=== PATIENT | female | born 1950 | race Caucasian/White ===

== ENCOUNTER 2017-07-10 12:53 | Emergency (ER) | payer MEDICAID, OTHER ==
[~2017-07-10] VITALS: Ht 160 cm; Wt 85.0 kg
[2017-07-10 12:58] VITALS: BP 155/80; PULSE 73; RESP 14; TEMP 98.4; O2SAT 97
[2017-07-10] MEDS ORDERED: SERT-129 PO (13:24)
[2017-07-10] MEDS ORDERED: MULT1CHW33 (13:24)
[2017-07-10] MEDS ORDERED: CLON0.5T PO (13:24)
[2017-07-10] MEDS ORDERED: BACL20TA PO (13:24)
[2017-07-10] MEDS ORDERED: ASPI-516 CHEW (13:24)
[2017-07-10] MEDS ORDERED: RANI150T PO (13:24)
[2017-07-10] MEDS ORDERED: VYTO10TA8 PO (13:24)
[2017-07-10] MEDS ORDERED: AZEL1SPR2 EACH NARE (13:24)
[2017-07-10] MEDS ORDERED: LOSA25TA PO (13:24)
[2017-07-10] MEDS ORDERED: MELA5 PO (13:24)
[2017-07-10] MEDS ORDERED: OXYB5TAB8 PO (13:24)
[2017-07-10 13:57] LABS: BILIRUBIN, URINE NEG (NEG); BLOOD, URINE NEG (NEG); GLUCOSE,URINE NEG (NEG); KETONE, URINE NEG (NEG); NITRITE,URINE NEG (NEG); SQUAMOUS EPITHELIAL CELL URINE 1 /hpf (0-5); URINE COLOR LIGHT-YELLOW (YELLW/STRAW); URINE LEUKOCYTE ESTERASE TRACE (NEG)
--- NOTE | 2017-07-10 14:18 | PD ---
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 Patient states she has been referred to a neurologist but that appointment is 2 weeks away and she did not think she can wait that long because she is running to the bathroom all the time. States she has had urinary tract infections in the past. States only minimal discomfort in the suprapubic area. No chest pain or shortness of breath no new weakness. Patient is symptoms are moderate, for the past week, context as above, associated signs symptoms as above PFSH Past Medical History Hx Anticoagulant Therapy: No Depression: Yes Cardiovascular Problems: No Chemotherapy: No Cerebrovascular Accident: No Diabetes: No GERD: Yes Hypertension: Yes Respiratory: No ?: Not Past Surgical History Hysterectomy: Yes (93) Social History Alcohol Use: No Tobacco Use: No (quit 15 years ago ) Substance Use: No Allergies-Medications (Allergen,Severity, Reaction): Coded Allergies: penicillin G (Unverified Allergy, Severe, 07/10/17) CONFIRM? Uncoded Allergies: PENICILLIN (Allergy, Unknown, 01/23/03) Reported Meds & Prescriptions Reported Meds & Active Scripts Active Reported Azelastine Nasal [place] (Azelastine HCl) 0.1% [place] 1 [place] EACH NARE BID Clonazepam 0.5 Mg Tab 0.5 Mg PO TID PRN Melatonin 5 Mg Tab 5 Mg PO HS Aspirin 81 Mg Chew 81 Mg CHEW DAILY Ranitidine (Ranitidine HCl) 150 Mg Tab 150 Mg PO BID Losartan (Losartan Potassium) 25 Mg Tab 25 Mg PO DAILY Sertraline (Sertraline HCl) 100 Mg Tab 150 Mg PO DAILY Ditropan (Oxybutynin Chloride) 5 Mg Tab 5 Mg PO DAILY Vytorin (Ezetimibe-Simvastatin) 10-20 Mg Tab 1 Tab PO HS Baclofen 20 Mg Tab 20 Mg PO QID Multi Adult Gummies (Multiple Vitamins W/ Minerals) 200 Mcg Chw Review of Systems Except as stated in HPI: all other systems reviewed are Neg Physical Exam Narrative GENERAL: Well-developed well-nourished, no obvious distress per SKIN: Focused skin assessment warm/dry. HEAD: Atraumatic. Normocephalic. EYES: Pupils equal and round. No scleral icterus. No injection or drainage. ENT: No nasal bleeding or discharge. Mucous membranes pink and moist. NECK: Trachea midline. No JVD. CARDIOVASCULAR: Regular rate and rhythm. No murmur appreciated. RESPIRATORY: No accessory muscle use. Clear to auscultation. Breath sounds equal bilaterally. GASTROINTESTINAL: Abdomen soft, non-tender, nondistended. Hepatic and splenic margins not palpable. MUSCULOSKELETAL: No obvious deformities. No clubbing. No cyanosis. No edema. NEUROLOGICAL: Awake and alert. Cranial nerves II through XII grossly intact and nonfocal, 5 out of 5 strength in all 4 extremities, she does have some slow very deliberate movements and some slow and very deliberate speech as well. All of which she says this is chronic for her PSYCHIATRIC: Appropriate mood and affect; insight and judgment normal. Data Data Last Documented VS Vital Signs Date Time Temp Pulse Resp B/P (MAP) Pulse Ox O2 Delivery O2 Flow Rate FiO2 07/10/17 15:35 07/10/17 12:58 98.4 73 14 97 Room Air Orders Orders Urinalysis - C+S If Indicated (07/10/17 13:16) Ed Poc Ultrasound (07/10/17 ) Ed Discharge Order (07/10/17 15:23) Labs Laboratory Tests Test 07/10/17 13:25 Urine Color LIGHT-YELLOW Urine Turbidity CLEAR Urine pH 6.0 Urine Specific [place] 1.003 Urine Protein NEG mg/dL Urine Glucose (UA) NEG mg/dL Urine Ketones NEG mg/dL Urine Occult Blood NEG Urine Nitrite NEG Urine Bilirubin NEG Urine Urobilinogen LESS THAN 2.0 MG/DL Urine Leukocyte Esterase TRACE Urine RBC LESS THAN 1 /hpf Urine WBC 2 /hpf Urine Squamous Epithelial Cells 1 /hpf Microscopic Urinalysis Comment CULT NOT INDICATED MDM Medical Decision Making Medical Screen Exam Complete: Yes Emergency Medical Condition: Yes Differential Diagnosis Urinary retention, acute kidney injury unlikely, neurogenic bladder Narrative Course Patient room to the emergency department, symptoms are likely consistent with neurogenic bladder versus UTI, urinalysis was negative, she is stable for discharge and discussed need follow-up with neurology as well as urologist. Procedures Procedure Narrative Bedside ultrasound abdomen: Bedside views obtained of the bladder and do show 370 cc of urine post void residual. The patient states she thinks she still has to pee, she went urinating and the bladder collapsed probably less than 50 cc of urine remained after she urinated. No pelvic free fluid was seen Diagnosis Primary Impression: Dysuria Referrals: Dexter Pritchett MD Disposition: 01 DISCHARGE HOME Condition: Stable Christiano Baxter MD Jul 10, 2017 14:18
== END 2017-07-10 16:15 | disposition home or self-care (01) ==
LOC: NEPE 12:53
DX: R30.0 Dysuria (principal); I10 Essential (primary) hypertension; F32.9 Major depressive disorder, single episode, unspecified; K21.9 Gastro-esophageal reflux disease without esophagitis; Z87.891 Personal history of nicotine dependence; Z87.440 Personal history of urinary (tract) infections
CPT/HCPCS: 81001; 99283